=== PATIENT | male | born 1985 ===

== ENCOUNTER 2023-02-23 20:13 | Emergency (ER) | payer OTHER ==
[2023-02-23] MEDS ORDERED: Albuterol/Ipratropium 3.0-0.5 MG/3 ML Neb Soln NEB ONE (20:29)
[2023-02-23] MEDS ORDERED: Dexamethasone 10 MG/ML SDV PO ONE (20:29)
[2023-02-23] MEDS ORDERED: Acetaminophen 500 MG Tab PO ONE (20:29)
[2023-02-23] MEDS ORDERED: Ibuprofen 600 MG Tab PO ONE (20:29)
[2023-02-23 21:11] LABS: CORONAVIRUS COVID-19 NAA NEGATIVE (NEGATIVE); INFLUENZA A NAA NEGATIVE (NEGATIVE); INFLUENZA B NAA NEGATIVE (NEGATIVE)
== END 2023-02-23 22:21 | disposition home or self-care (01) ==
LOC: MW.ED 20:13
DX: B34.9 Viral infection, unspecified (principal); J20.9 Acute bronchitis, unspecified; Z20.822 Contact with and (suspected) exposure to COVID-19
CPT/HCPCS: 0240U; 71046; 99285; A9270; J8540; 99283; J7620-GY